=== PATIENT | female | born 1950 | race Caucasian/White ===

== ENCOUNTER 2021-09-03 10:15 | Emergency (ER) | payer MEDICARE ==
[~2021-09-03] VITALS: Wt 69.9 kg
[~2021-09-03 10:15] MED LIST: CLARITIN10 MG PO; MEDROL DOSEPAK4 MG PO
== END 2021-09-03 11:25 | disposition home or self-care (01) ==
LOC: ED 10:15
DX: B35.9 Dermatophytosis, unspecified (principal)